=== PATIENT | female | born 1975 | race Caucasian/White ===

== ENCOUNTER 2024-09-20 12:18 | Day surgery (SDC) | payer BC ==
[~2024-09-20] VITALS: Ht 152.4 cm; Wt 77.0 kg
--- NOTE | ~2024-09-20 | OR ---
[facility] [address], [place] [address] Draft DATE OF OPERATION: 09/20/2024 SURGEON: Trey Chan MD PREOPERATIVE DIAGNOSIS: Colon screening. POSTOPERATIVE DIAGNOSIS: Normal colon to cecum. PROCEDURE: Total colonoscopy to cecum. ANESTHESIA: Intravenous sedation; fentanyl 150 mcg and Versed 7 mg. INDICATION: This 49-year-old white woman is a patient of Toy Caballero. She is referred for colon screening. She has no current problems of bleeding, diarrhea, or constipation. She has no family history of colon cancer. She is admitted at this time to undergo colonoscopy. She understands the risk of bleeding, infection, and perforation. FINDINGS: The prep was excellent. Complete colonoscopy was undertaken to the cecum. Full intubation of the cecum was accomplished. Upon withdrawal of the scope, there was no evidence of polyps, diverticular formation, colitis, or cancer. PROCEDURE IN DETAIL: The patient was brought to the endoscopy suite and placed in the lateral decubitus position, given intravenous sedation to the point of slurred speech and nystagmus. Digital rectal examination was normal. An Olympus video colonoscope was passed in the rectum and manipulated throughout the colon ultimately intubating the cecum itself. The ileocecal valve and appendiceal orifice were normal. The scope was withdrawn from that point and examination throughout showed no sign of abnormality; specifically no polyps, diverticular formation, colitis, or cancer. Retroflexed view of the rectum was normal. The scope was removed and the patient was taken to the recovery room in good condition. CONCLUSION DIAGNOSIS: PATIENT NAME: NEHA FRIEND OPERATIVE REPORT DATE OF : 79 REPORT #: [id number] PHYSICIAN: TREY CHAN MD PCP: TOY CABALLERO PA-C REPORT IS CONFIDENTIAL AND NOT TO BE RELEASED WITHOUT AUTHORIZATION [address] [place], [place] [address] Draft Normal colon. PLAN: Recommend repeat colonoscopy in 10 years, sooner if symptoms should develop. She will return to the ongoing care of NICOLE Jarvis. MD MATTHEW Jack/PUJA /[id number] cc: PA. Matheus Copies: ~ PATIENT NAME: NEHA FRIEND OPERATIVE REPORT DATE OF : 79 REPORT #: [id number] PHYSICIAN: TREY CHAN MD PCP: TOY CABALLERO PA-C REPORT IS CONFIDENTIAL AND NOT TO BE RELEASED WITHOUT AUTHORIZATION
[~2024-09-20 12:18] MED LIST: GINGER500 MG PO; IBLOOD GLUCOSE TEST STRIP 1 EA TEST VI PRN; LACTATED RINGER'S 1,000 ML IV SCH; LIDOCAINE HCL 1% 5 ML SDV INJ ONE; MACRODANTIN100 MG PO; MIDAZOLAM HCL 5 MG/5 ML VIAL IV PRN; TURMERIC500 M3 PO; fentaNYL citrate 100 MCG/2 ML VIAL IV PRN
[2024-09-20] MEDS ORDERED: CLOBETASOL PROP15 G3 TOP (12:58)
[2024-09-20 13:00] VITALS: BP 122/71
[2024-09-20] MEDS ORDERED: fentaNYL citrate 100 MCG/2 ML VIAL ONE (13:32)
[2024-09-20] MEDS ORDERED: MIDAZOLAM HCL 5 MG/5 ML VIAL ONE (13:32)
--- NOTE | 2024-09-20 14:46 | NUR ---
09/20/24 1446 Sheets,Diana 1434 PT ARRIVED TO PACU ON RA, PT DROWSY AND EASILY FALLS BACK TO SLEEP WHEN NOT STIMULATED. O2 HIHG 80S, DEEP BREATHING ENCOURAGED. 1437 O2 REMAINS LOW 90S HIGH 80S, 2L NC PLACED. PT EASILY FALLS BACK TO SLEEP. O2 INCREASED TO HIGH 90S.
[2024-09-20 15:18] VITALS: BP 108/66
== END 2024-09-20 15:34 | disposition home or self-care (01) ==
LOC: DS 12:18
PROVIDERS: ATTEND Surgery
PROC: 0DJD8ZZ Inspection of Lower Intestinal Tract, Via Natural or Artificial Opening Endoscopic (ICD-10-PCS; principal; 2024-09-20 13:15)
DX: Z12.11 Encounter for screening for malignant neoplasm of colon (principal); G25.81 Restless legs syndrome; Z88.0 Allergy status to penicillin; Z79.899 Other long term (current) drug therapy
CPT/HCPCS: 84703; 99153; G0500; J2250; J3010; J7121